=== PATIENT | female | born 1995 | race Caucasian/White ===

== ENCOUNTER 2018-09-22 19:47 | Emergency (ER) | payer OTHER ==
[2018-09-23] MEDS: METHYLPREDNISOLONE 125 MG INJ IM
[2018-09-23] MEDS: ONDANSETRON (ODT) 4 MG TAB ODT
[2018-09-23] MEDS: IBUPROFEN 600 MG TAB PO (00:01)
== END 2018-09-23 00:12 | disposition home or self-care (01) ==
LOC: FTE 09-23 00:12
DX: J02.9 Acute pharyngitis, unspecified (principal); F17.210 Nicotine dependence, cigarettes, uncomplicated; J04.0 Acute laryngitis; J45.909 Unspecified asthma, uncomplicated
CPT/HCPCS: 96372; 99284-25